=== PATIENT | female | born 1950 | race Caucasian/White ===

== ENCOUNTER 2021-11-13 13:30 | Emergency (ER) | payer OTHER ==
[2021-11-13 13:46] LABS: #Basophils 0.1 thou/uL (0.0-0.2); #Eosinphils 0.1 thou/uL (0.0-0.7); #Lymphocytes 0.8 thou/uL (1.20-3.40); #Monocytes 0.4 thou/uL (0.11-0.59); #Neutrophils 11.2 thou/uL (1.40-6.50); %Eosinophils 0.6 % (0.0-10.0); %Lymphocytes 6.5 % (21.0-51.0); %Monocytes 3.3 % (0.0-10.0); %Neutrophils 88.6 % (42.0-75.0); Hemoglobin 12.8 g/dL (12.0-16.0); Mean Corpuscular HGB CONC 33.2 g/dL (32.0-36.0); Mean Corpuscular Hemoglobin 30.8 pg (27.0-31.0); Mean Corpuscular Volume 92.7 fL (78.0-98.0); Mean Platelet Volume 6.5 fL (7.4-10.4); Platelet Count 413 thou/uL (130-400); RBC Distribution Width 11.4 % (11.5-14.5); Red Blood Cell (RBC) Count 4.15 mill/uL (4.20-5.40); White Blood Cell (WBC) Count 12.6 thou/uL (4.8-10.8)
[2021-11-13 13:55] LABS: INR-International Normal Ratio 1.1; Prothrombin Time 13.8 sec (12.0-14.7)
[2021-11-13 13:56] LABS: PTT 37.3 sec (22.9-36.1)
[2021-11-13 14:08] LABS: ALT (SGPT) 19 U/L (8-55); AST (SGOT) 25 U/L (5-34); Alkaline Phosphatase 134 U/L (40-110); Anion Gap 21 mmol/L (10-20); BUN (Urea Nitrogen) 39 mg/dL (9.8-20.1); Bilirubin, Total 0.6 mg/dL (0.2-1.2); Calc. Creatinine Clearance 0 mL/min (70-130); Calcium 9.7 mg/dL (7.8-10.44); Carbon Dioxide 22 mmol/L (23-31); Chloride 96 mmol/L (98-107); Globulin 4.3 g/dL (2.4-3.5); Glucose 136 mg/dL (80-115); Potassium 5.1 mmol/L (3.5-5.1); Protein, Total 8.3 g/dL (5.8-8.1); Sodium 134 mmol/L (136-145)
[2021-11-13] MEDS ORDERED: Aspirin 325 MG TAB ONE (15:04)
[2021-11-13] MEDS ORDERED: Lorazepam 1 MG TAB ONE (15:04)
== END 2021-11-13 17:38 | disposition home or self-care (01) ==
LOC: ERS 13:30
DX: S09.90XA Unspecified injury of head, initial encounter (principal); S09.93XA Unspecified injury of face, initial encounter; R53.1 Weakness; R42 Dizziness and giddiness; H53.8 Other visual disturbances; I12.9 Hypertensive chronic kidney disease with stage 1 through stage 4 chronic kidney disease, or unspecified chronic kidney disease; N18.9 Chronic kidney disease, unspecified; M19.90 Unspecified osteoarthritis, unspecified site; R29.700 NIHSS score 0; W01.10XA Fall on same level from slipping, tripping and stumbling with subsequent striking against unspecified object, initial encounter
CPT/HCPCS: 70450; 70486; 72125; 80053; 84484; 85025; 85610; 85730

== ENCOUNTER 2023-07-10 00:02 | Inpatient (IN) | payer MEDICARE, OTHER ==
[2023-07-10] MEDS ORDERED: EPINEPHrine 1 MG/10 ML Abboject SYRINGE ONE (00:09)
[2023-07-10] MEDS ORDERED: NOREPINEPHRINE 8 MG/250 ML-D5W 250 ML ONE (00:09)
[2023-07-10] MEDS ORDERED: Sodium Bicarb 50 MEQ/50 ML Abboject 8.4% SYRINGE ONE (00:09)
[2023-07-10] MEDS ORDERED: Vasopressin 20 UNITS/ML VIAL ONE ×2 (00:11→00:14)
[2023-07-10 00:27] LABS: Analyzer IN Cardio ER; Base Excess (BEa) -21.7 mEq/L (-2.0 to +3.0); CO2 Tension 57.5 mmHg (35.0-45.0); Calcium, Ionized (arterial) 1.24 mmol/L (1.12-1.30); Carboxyhemoglobin (COHb) 0.3 gm% (0.0-3.0); Hematocrit-ABG 31 % (36.0-47.0); Hemoglobin (Hb) 10.7 g/dL (12.0-16.0); Potassium - ABG Lab 5.15 mmol/L (3.70-5.30)
[2023-07-10 00:30] LABS: Actual Bicarbonate (HCO3a) 10.9 mEq/L (22-28); Puncture Site RFA; pH, Arterial 6.895 (7.35-7.45)
[2023-07-10 00:31] LABS: ALV-art Gradient 590.125 mmHg (0-20)
[2023-07-10 00:42] LABS: Hematocrit 34.3 % (36.0-47.0); Hemoglobin 9.8 g/dL (12.0-16.0); Mean Corpuscular HGB CONC 28.6 g/dL (32.0-36.0); Mean Corpuscular Hemoglobin 31.2 pg (27.0-31.0); Mean Corpuscular Volume 109.2 fl (78.0-98.0); Mean Platelet Volume 8.9 fL (7.4-10.4); Platelet Count 224 10x3/uL (130-400); RBC Distribution Width 13.9 % (11.5-14.5); Red Blood Cell (RBC) Count 3.14 mill/uL (4.20-5.40); White Blood Cell (WBC) Count 13.8 10x3/uL (4.8-10.8)
[2023-07-10 00:43] LABS: Delete Auto Diff?? YES; Manual Diff?? YES
[2023-07-10] MEDS ORDERED: methylPREDNISolone Sod Succ/PF 125 MG/2 ML VIAL IVP SCH (01:00)
[2023-07-10 01:04] LABS: Band 20 % (5-11); CellaVision Operator ID LAB.CLH1; Eosinophils 4 % (0-10); Hypochromia SLIGHT = 6-15 cells HPF (0-5); Lymphocytes 20 % (21-51); Macrocytosis SLIGHT = 6-15 cells HPF (0-5); Metamyelocyte 11 % (0-0); Neutrophil 42 % (42-75); Nucleated RBC (Manual Ct) 1 % (0); Platelet Adequacy Comment Platelets Normal; Total Cell Count 111
[2023-07-10 01:15] LABS: Troponin I 3.708 ng/mL (< 0.028)
[2023-07-10] MEDS ORDERED: Furosemide 20 MG/2 ML VIAL ONE (01:19)
[2023-07-10 01:27] LABS: Bilirubin Negative (Negative); Blood, Urine Small (Negative); Glucose, Urine (Dipstick) 100 mg/dL (Negative); Ketone, Urine Negative (Negative); Leukocyte Negative (Negative); Nitrite Negative (Negative); Protein, Urine (Dipstick) 100 mg/dL (Neg-Trace); Specific Gravity, Urine 1.015 (1.005-1.030); Urobilinogen 0.2 mg/dL (Less than 2)
[2023-07-10 01:35] LABS: Clarity Clear (Clear); RBC/HPF 0-3 HPF (0-3)
[2023-07-10] MEDS ORDERED: Acetaminophen 650 MG Suppository PR PRN (01:57)
[2023-07-10] MEDS ORDERED: Vasopressin 20 UNITS in Sodium Chloride 0.9% 50 ML IV PRN (01:57)
[2023-07-10] MEDS ORDERED: Electrolyte Replacement Protocol 1 EACH IVPB PRN (01:57)
[2023-07-10] MEDS ORDERED: Ipratropium/Albuterol 3 ML NEB NEB PRN (01:57)
[2023-07-10] MEDS ORDERED: Ventilator Sedation Protocol 1 EACH FS SCH (02:00)
[2023-07-10 02:05] LABS: Chloride 106 mmol/L (98-107); Potassium 4.8 mmol/L (3.5-5.1); Sodium 138 mmol/L (136-145)
[2023-07-10 02:06] LABS: Calcium 8.2 mg/dL (7.8-10.44); Globulin 2.9 g/dL (2.4-3.5); Glucose 351 mg/dL (83-110); Protein, Total 4.9 g/dL (5.8-8.1)
[2023-07-10 02:08] LABS: Anion Gap 23 mmol/L (10-20); Bilirubin, Total 0.3 mg/dL (0.2-1.2); Carbon Dioxide 14 mmol/L (23-31)
[2023-07-10 02:09] LABS: Alkaline Phosphatase 167 U/L (40-110)
[2023-07-10 02:10] LABS: BUN (Urea Nitrogen) 41 mg/dL (9.8-20.1); Calc. Creatinine Clearance 0 mL/min (70-130); Estimated GFR 23
[2023-07-10 02:11] LABS: AST (SGOT) 399 U/L (5-34)
[2023-07-10 02:12] LABS: ALT (SGPT) 217 U/L (8-55)
[2023-07-10] MEDS ORDERED: Lorazepam 2 MG/ML VIAL SLOW IVP PRN (02:15)
[2023-07-10] MEDS ORDERED: Propofol 1,000 MG/100 ML VIAL IV PRN (02:15)
[2023-07-10] MEDS ORDERED: Morphine 2 MG/ML VIAL SLOW IVP PRN (02:15)
[2023-07-10] MEDS ORDERED: Fentanyl BOLUS 250 ML IVPB PRN (02:15)
[2023-07-10] MEDS ORDERED: DISCONTINUE PREVIOUS NARCOTIC PAIN MEDICATIONS AND BENZODIAZEPINES FS SCH (02:15)
[2023-07-10] MEDS ORDERED: Propofol BOLUS 1,000 MG/100 ML VIAL IV PRN (02:15)
[2023-07-10] MEDS ORDERED: Fentanyl CADD 100 ML IV SCH (02:15)
[2023-07-10 03:35] VITALS: BMI 28.8
[2023-07-10] MEDS ORDERED: Piperacillin/Tazobactam 3.375 GM in Sodium Chloride 0.9% 100 ML IVPB SCH (04:00)
[2023-07-10] MEDS ORDERED: Phenylephrine 40 MG in Sodium Chloride 0.9% 250 ML 250 ML IVPB SCH (04:15)
[2023-07-10] MEDS: Phenylephrine 40 MG/NS 250 ML 40 MG in Premix Bag 1 BAG IVPB SCH ×6 (04:20→21:14)
[2023-07-10] MEDS: EPINEPHrine 4 MG in Dextrose 5% in Water 250 ML IV SCH ×6 (04:56→20:24)
[2023-07-10] MEDS: NOREPINEPHRINE 8 MG/250 ML-D5W 250 ML IVPB PRN ×6 (04:57→20:54)
[2023-07-10] MEDS ORDERED: Sodium Bicarbonate 150 MEQ in Dextrose 5% in Water 1,000 ML IV SCH ×2 (05:00→18:15)
[2023-07-10] MEDS ORDERED: Sodium Bicarb 50 MEQ/50 ML Abboject 8.4% SYRINGE IVP SCH (05:00)
[2023-07-10] MEDS ORDERED: Calcium Chloride 1 GM/10 ML Abboject SYRINGE IVP SCH (05:00)
[2023-07-10 07:14] LABS: Base Excess (BEa) -12.9 mEq/L (-2.0 to +3.0); CO2 Tension 42.1 mmHg (35.0-45.0); Calcium, Ionized (arterial) 1.19 mmol/L (1.12-1.30); Carboxyhemoglobin (COHb) 0.7 gm% (0.0-3.0); Hematocrit-ABG 25 % (36.0-47.0); Hemoglobin (Hb) 8.5 g/dL (12.0-16.0); Potassium - ABG Lab 3.34 mmol/L (3.70-5.30)
[2023-07-10 07:15] LABS: O2 Tension (PaO2), arterial 42.7 mmHg (> 70.0); pH, Arterial 7.164 (7.35-7.45)
[2023-07-10 07:16] LABS: ALV-art Gradient 617.675 mmHg (0-20); Actual Bicarbonate (HCO3a) 14.8 mEq/L (22-28); Puncture Site LRA
[2023-07-10 07:33] LABS: ALT (SGPT) 240 U/L (8-55); AST (SGOT) 471 U/L (5-34); Albumin 1.6 g/dL (3.4-4.8); Alkaline Phosphatase 137 U/L (40-110); Anion Gap 28 mmol/L (10-20); BUN (Urea Nitrogen) 41 mg/dL (9.8-20.1); Bilirubin, Total 0.4 mg/dL (0.2-1.2); Calc. Creatinine Clearance 30 mL/min (70-130); Calcium 8.4 mg/dL (7.8-10.44); Carbon Dioxide 12 mmol/L (23-31); Chloride 102 mmol/L (98-107); Estimated GFR 22; Glucose 385 mg/dL (83-110); Magnesium 2.1 mg/dL (1.6-2.6); Potassium 3.6 mmol/L (3.5-5.1); Protein, Total 3.6 g/dL (5.8-8.1); Sodium 138 mmol/L (136-145)
[2023-07-10 07:45] LABS: Lactic Acid 17.8 mmol/L (0.5-2.2)
[2023-07-10] MEDS ORDERED: Dextrose 5% in Water 1,000 ML IV PRN (08:18)
[2023-07-10] MEDS ORDERED: Dextrose 50% Abboject 50 ML SYRINGE SLOW IVP PRN (08:18)
[2023-07-10] MEDS ORDERED: Glucagon 1 MG/ML KIT IM PRN (08:18)
[2023-07-10] MEDS ORDERED: Sodium Chloride 0.9% 500 ML IV SCH (08:30)
[2023-07-10] MEDS ORDERED: Famotidine/PF 20 mg/2ml Vial SLOW IVP SCH (09:00)
[2023-07-10] MEDS ORDERED: FLU VACC QS2023(65UP)/MF59C/PF 60 MCG/0.5 ML SYRINGE IM ONE (09:00)
[2023-07-10] MEDS: Piperacillin/Tazobactam 3.375 GM in Sodium Chloride 0.9% 100 ML IVPB SCH ×2 (09:50→16:52)
[2023-07-10] MEDS ORDERED: Albumin 25% 25 GM/100 ML BOT IVPB SCH ×3 (10:45→18:00)
[2023-07-10 11:48] LABS: Mean Corpuscular HGB CONC 31.9 g/dL (32.0-36.0); Platelet Count 179 10x3/uL (130-400); RBC Distribution Width 13.4 % (11.5-14.5); White Blood Cell (WBC) Count 7.7 10x3/uL (4.8-10.8)
[2023-07-10 11:57] LABS: Hemoglobin 6.5 g/dL (12.0-16.0)
[2023-07-10 11:58] LABS: Hematocrit 20.4 % (36.0-47.0); Mean Corpuscular Volume 97.1 fl (78.0-98.0)
[2023-07-10 11:59] LABS: Delete Auto Diff?? YES; Manual Diff?? YES
[2023-07-10 12:21] LABS: Band 25 % (5-11); CellaVision Operator ID LAB.GE; Eosinophils 1 % (0-10); Lymphocytes 4 % (21-51); Monocytes 2 % (0-10); Neutrophil 69 % (42-75); Platelet Adequacy Comment Platelets Normal; Polychromasia SLIGHT = 2-3 cells HPF (0-2); Total Cell Count 102
[2023-07-10] MEDS: HumaLOG 300 UNITS/3 ML VIAL SC PRN ×2 (12:27→17:30)
[2023-07-10 12:44] LABS: Troponin I 7.683 ng/mL (< 0.028)
[2023-07-10] MEDS ORDERED: Iopamidol-370 76% 500 ML MDV (1 ML CHARGE) ONE (13:18)
[2023-07-10 17:51] LABS: Glucose POC Confirmation 578 mg/dL (83-110)
[2023-07-10 17:52] LABS: Troponin I 7.565 ng/mL (< 0.028)
[2023-07-10 18:55] VITALS: BP 89/30
[2023-07-10 20:53] VITALS: TEMP 96.3
[2023-07-10] MEDS ORDERED: NOREPINEPHRINE 8 MG/250 ML-D5W 250 ML IVPB SCH (21:15)
[2023-07-10] MEDS ORDERED: DEXTROSE 5% IV SCH (21:15)
[2023-07-10] MEDS ORDERED: WATER IV SCH (21:15)
[2023-07-10] MEDS ORDERED: EPINEPHRINE IV SCH (21:15)
[2023-07-10 21:24] LABS: Hematocrit 17.6 % (36.0-47.0); Hemoglobin 5.6 g/dL (12.0-16.0); Mean Corpuscular HGB CONC 31.8 g/dL (32.0-36.0); Mean Corpuscular Hemoglobin 31.6 pg (27.0-31.0); Mean Corpuscular Volume 99.4 fl (78.0-98.0); Mean Platelet Volume 9.5 fL (7.4-10.4); Platelet Count 137 10x3/uL (130-400); RBC Distribution Width 13.1 % (11.5-14.5); Red Blood Cell (RBC) Count 1.77 mill/uL (4.20-5.40); White Blood Cell (WBC) Count 9.4 10x3/uL (4.8-10.8)
[2023-07-10 21:34] LABS: Glucose 573 mg/dL (83-110)
== END 2023-07-10 21:58 | disposition expired | DRG 208 ==
LOC: ERS 00:02 → CCU 01:30
PROVIDERS: ADMIT Student in an Organized Health Care Education/Training Program; ATTEND Family Medicine
PROC: 5A1935Z Respiratory Ventilation, Less than 24 Consecutive Hours (ICD-10-PCS; principal; 2023-07-10)
PROC: 04HY32Z Insertion of Monitoring Device into Lower Artery, Percutaneous Approach (ICD-10-PCS; 2023-07-10)
PROC: 4A133B1 Monitoring of Arterial Pressure, Peripheral, Percutaneous Approach (ICD-10-PCS; 2023-07-10)
PROC: 4A133J1 Monitoring of Arterial Pulse, Peripheral, Percutaneous Approach (ICD-10-PCS; 2023-07-10)
PROC: 3E033XZ Introduction of Vasopressor into Peripheral Vein, Percutaneous Approach (ICD-10-PCS; 2023-07-10)
PROC: 30233N1 Transfusion of Nonautologous Red Blood Cells into Peripheral Vein, Percutaneous Approach (ICD-10-PCS; 2023-07-10)
PROC: 30233J1 Transfusion of Nonautologous Serum Albumin into Peripheral Vein, Percutaneous Approach (ICD-10-PCS; 2023-07-10)
PROC: 4A133R1 Monitoring of Arterial Saturation, Peripheral, Percutaneous Approach (ICD-10-PCS; 2023-07-10)
PROC: 0D9670Z Drainage of Stomach with Drainage Device, Via Natural or Artificial Opening (ICD-10-PCS; 2023-07-10)
PROC: 05HY33Z Insertion of Infusion Device into Upper Vein, Percutaneous Approach (ICD-10-PCS; 2023-07-10)
DX: J69.0 Pneumonitis due to inhalation of food and vomit (principal); J80 Acute respiratory distress syndrome; K72.00 Acute and subacute hepatic failure without coma; I21.A1 Myocardial infarction type 2; S02.609A Fracture of mandible, unspecified, initial encounter for closed fracture; N17.9 Acute kidney failure, unspecified; J93.9 Pneumothorax, unspecified; M19.90 Unspecified osteoarthritis, unspecified site; I10 Essential (primary) hypertension; R58 Hemorrhage, not elsewhere classified; S00.03XA Contusion of scalp, initial encounter; X58.XXXA Exposure to other specified factors, initial encounter; S80.12XA Contusion of left lower leg, initial encounter; S40.022A Contusion of left upper arm, initial encounter; I46.9 Cardiac arrest, cause unspecified; R57.0 Cardiogenic shock; R68.0 Hypothermia, not associated with low environmental temperature; I65.22 Occlusion and stenosis of left carotid artery; Z51.5 Encounter for palliative care; Z88.5 Allergy status to narcotic agent; Z88.2 Allergy status to sulfonamides; Z88.8 Allergy status to other drugs, medicaments and biological substances; Z88.1 Allergy status to other antibiotic agents; Z91.013 Allergy to seafood; Z85.89 Personal history of malignant neoplasm of other organs and systems; Z98.890 Other specified postprocedural states; Z90.49 Acquired absence of other specified parts of digestive tract; Y92.9 Unspecified place or not applicable
CPT/HCPCS: 36415; 36416; 36430; 36600; 70450; 70498; 71045; 71275; 80053; 81001; 82805; 83605; 83735; 84484; 85025; 86850; 86900; 86901; 93005; 94002; J0171; J1815; J1940; J2543; J2930; J3490; J7050; J7070; P9016; P9047; S0028